=== PATIENT | male | born 1995 | race Two or more races ===

== ENCOUNTER 2018-06-13 13:35 | Emergency (ER) | payer OTHER ==
[~2018-06-13] VITALS: Ht 170.2 cm; Wt 90.7 kg
[2018-06-13 13:53] VITALS: BP 127/83
--- NOTE | 2018-06-13 14:12 | PHYS DOC ---
Past History Past Medical History: No Pertinent History Past Surgical History: No Surgical History Alcohol Use: None Drug Use: None Adult General Chief Complaint Chief Complaint: ANKLE PROBLEM HPI HPI 23-year-old male presents with left ankle pain. 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 As he threw his partner checked the ground he rotated his body and twisted his left ankle. He had immediate lateral pain. He was able to stand on it, but it is painful. They wanted him to come in and have it checked out. She denies any history of injuries to this an kle. He denies any other injuries or complaints. Review of Systems Review of Systems Constitutional: Denies fever or chills [] Eyes: Denies change in visual acuity, redness, or eye pain [] HENT: Denies nasal congestion or sore throat [] Respiratory: Denies cough or shortness of breath [] Cardiovascular: No additional information not addressed in HPI [] GI: Denies abdominal pain, nausea, vomiting, bloody stools or diarrhea [] : Denies dysuria or hematuria [] Musculoskeletal: Left ankle pain[] Integument: Denies rash or skin lesions [] Neurologic: Denies headache, focal weakness or sensory changes [] Endocrine: Denies polyuria or polydipsia [] All other systems were reviewed and found to be within normal limits, except as documented in this note. Allergies Allergies Allergies Coded Allergies Type Severity Reaction Last Updated Verified No Known Drug Allergies 06/13/18 No Physical Exam Physical Exam Constitutional: Well developed, well nourished, no acute distress, non-toxic appearance. [] HENT: Normocephalic, atraumatic, bilateral external ears normal, oropharynx moist, no oral exudates, nose normal. [] Eyes: PERRLA, EOMI, conjunctiva normal, no discharge. [] Neck: Normal range of motion, no tenderness, supple, no stridor. [] Cardiovascular:Heart rate regular rhythm, no murmur [] Lungs & Thorax: Bilateral breath sounds clear to auscultation [] Abdomen: Bowel sounds normal, soft, no tenderness, no masses, no pulsatile masses. [] Skin: Warm, dry, no erythema, no rash. [] Back: No tenderness, no CVA tenderness. [] Extremities: Tenderness to the left lateral ankle, no ecchymosis, no swelling, no obvious deformity.[] Neurologic: Alert and oriented X 3, normal motor function, normal sensory function, no focal deficits noted. [] Psychologic: Affect normal, judgement normal, mood normal. [] Current Patient Data Vital Signs Vital Signs Date Time Temp Pulse Resp B/P (MAP) Pulse Ox O2 Delivery O2 Flow Rate FiO2 06/13/18 13:53 99.2 116 20 99 Room Air EKG EKG [] Radiology/Procedures Radiology/Procedures [] Impressions: Examination: ANKLE LEFT 3V History: TWISTED ANKLE AND PERSON LANDED ON TOP OF LEG. SWELLING, PAIN IN ANKLE. DIFFICULTY AMBULATING. PT SHIELDED
Comparison/Correlation: None Findings: 3 images of the left ankle were obtained. Ankle joint mortise is unremarkable. No acute fracture or bony destruction. Mild soft tissue swelling about the lateral malleolus is present.. Impression: Mild soft tissue swelling. Electronically signed by: Pinky Miller MD (06/13/2018 2:24 PM) [facility] [place] DICTATED AND SIGNED BY: PINKY MILLER MD DATE: 06/13/18 1424 CC: GENE ARORA DO; PCP,NO ~ Course & Med Decision Making Course & Med Decision Making Pertinent Labs and Imaging studies reviewed. (See chart for details) Patient's x-rays negative for fracture. He appears to have a sprained left ankle. I will place him in a air splint. He is stable for discharge at this time. [] Dragon Disclaimer Dragon Disclaimer This electronic medical record was generated, in whole or in part, using a voice recognition dictation system. Departure Departure: Impression: Primary Impression: Left ankle sprain Disposition: 01 HOME, SELF-CARE Condition: STABLE Referrals: PCP,NO (PCP) Patient Instructions: Ankle Sprain, Acute, with Phase I Rehab-SportsMed Problem Qualifiers Primary Impression: Left ankle sprain Encounter type: initial encounter Involved ligament of ankle: anterior talofibular ligament Qualified Codes: S93.492A - Sprain of other ligament of left ankle, initial encounter GENE ARORA DO Jun 13, 2018 14:12
--- NOTE | 2018-06-13 14:27 | RAD ---
Examination: ANKLE LEFT 3V History: TWISTED ANKLE AND PERSON LANDED ON TOP OF LEG. SWELLING, PAIN IN ANKLE. DIFFICULTY AMBULATING. PT SHIELDED
Comparison/Correlation: None Findings: 3 images of the left ankle were obtained. Ankle joint mortise is unremarkable. No acute fracture or bony destruction. Mild soft tissue swelling about the lateral malleolus is present.. Impression: Mild soft tissue swelling. Electronically signed by: Chintan Bernard MD (06/13/2018 2:24 PM) [facility]
[2018-06-13] MEDS ORDERED: NAPROXEN 500 MG TABLET PO ONE (15:10)
== END 2018-06-13 14:53 | disposition home or self-care (01) ==
LOC: ER 13:45
DX: S93.402A Sprain of unspecified ligament of left ankle, initial encounter (principal); X50.9XXA Other and unspecified overexertion or strenuous movements or postures, initial encounter; Y93.89 Activity, other specified; Y92.89 Other specified places as the place of occurrence of the external cause; Y99.0 Civilian activity done for income or pay
CPT/HCPCS: 29515; 73610; 99284